=== PATIENT | male | born 1940 | race Caucasian/White ===

== ENCOUNTER 2018-05-13 14:11 | Day surgery (SDC) | payer MEDICARE, OTHER ==
[2018-05-13] MEDS: ceFAZolin 1 GM in Premix Bag 1 BAG IV SCH ×2 (15:17→20:11)
[2018-05-14] MEDS ORDERED: Lactated Ringers 1,000 ML IV SCH
[2018-05-14] MEDS: ceFAZolin 1 GM in Premix Bag 1 BAG IV SCH ×4 (03:18→21:30)
--- NOTE | 2018-05-14 08:47 | PCM.PREANE ---
Preanesthetic Assessment - Anesthesia/Transfusion/Family Hx Anesthesia History: Prior Anesthesia Without Reaction Family History of Anesthesia Reaction: No Transfusion History: Unknown Intubation History: Unknown - Review of Systems General: No Symptoms Pulmonary: No Symptoms Cardiovascular: No Symptoms Gastrointestinal: No Symptoms Neurological: No Symptoms Other: Reports: None - Physical Assessment NPO Status Date: 05/13/18 NPO Status Time: 21:00 O2 Sat by Pulse Oximetry: 96 Respiratory Rate: 16 Vital Signs: Last Vital Signs Temp 96.8 F 05/14/18 07:43 Pulse 60 05/14/18 07:43 Resp 16 05/14/18 07:43 BP 152/84 H 05/14/18 07:43 Pulse Ox 96 05/14/18 07:43 Height: 6 ft 2 in Weight: 83.263 kg ASA Class: 2 Mental Status: Alert & Oriented x3 Airway Class: Mallampati = 2 Dentition: Reports: Missing Tooth/Teeth Thyro-Mental Finger Breadths: 2 (Recessed lower jaw, narrow mouth) Mouth Opening Finger Breadths: 2 ROM/Head Extension: Full Lungs: Clear to Auscultation, Normal Respiratory Effort Cardiovascular: Regular Rate, Regular Rhythm - Lab Values: Laboratory Last Values WBC 6.69 K/uL (4.0-11.0) 05/14/18 05:25 RBC 3.52 M/uL (4.50-5.90) L 05/14/18 05:25 Hgb 10.9 g/dL (13.0-17.0) L 05/14/18 05:25 Hct 33.0 % (38.0-50.0) L 05/14/18 05:25 MCV 93.8 fL (80.0-98.0) 05/14/18 05:25 MCH 31.0 pg (27.0-32.0) 05/14/18 05:25 MCHC 33.0 g/dL (31.0-37.0) 05/14/18 05:25 RDW Std Deviation 45.3 fl (28.0-62.0) 05/14/18 05:25 RDW Coeff of Fara 13 % (11.0-15.0) 05/14/18 05:25 Plt Count 322 K/uL (150-400) 05/14/18 05:25 MPV 9.10 fL (7.40-12.00) 05/14/18 05:25 Neut % (Auto) 53.2 % (48.0-80.0) 05/14/18 05:25 Lymph % (Auto) 35.3 % (16.0-40.0) 05/14/18 05:25 Patrick % (Auto) 9.0 % (0.0-15.0) 05/14/18 05:25 Eos % (Auto) 2.4 % (0.0-7.0) 05/14/18 05:25 Baso % (Auto) 0.1 % (0.0-1.5) 05/14/18 05:25 Neut # (Auto) 3.6 K/uL (1.4-5.7) 05/14/18 05:25 Lymph # (Auto) 2.4 K/uL (0.6-2.4) 05/14/18 05:25 Patrick # (Auto) 0.6 K/uL (0.0-0.8) 05/14/18 05:25 Eos # (Auto) 0.2 K/uL (0.0-0.7) 05/14/18 05:25 Baso # (Auto) 0.0 K/uL (0.0-0.1) 05/14/18 05:25 Nucleated RBC % 0.0 /100WBC 05/14/18 05:25 Nucleated RBCs # 0 K/uL 05/14/18 05:25 Sodium 137 mmol/L (136-148) 05/14/18 05:25 Potassium 4.5 mmol/L (3.5-5.1) 05/14/18 05:25 Chloride 105 mmol/L (98-107) 05/14/18 05:25 Carbon Dioxide 27.9 mmol/L (21.0-32.0) 05/14/18 05:25 BUN 16 mg/dL (7.0-18.0) 05/14/18 05:25 Creatinine 1.2 mg/dL (0.8-1.3) 05/14/18 05:25 Est Cr Clr Drug Dosing 58.03 mL/min 05/14/18 05:25 Estimated GFR (MDRD) 58.4 ml/min 05/14/18 05:25 Glucose 95 mg/dL (74-106) 05/14/18 05:25 Calcium 8.5 mg/dL (8.5-10.1) 05/14/18 05:25 - Allergies Allergies/Adverse Reactions: Allergies Allergy/AdvReac Type Severity Reaction Status Date / Time No Known Allergies Allergy Verified 05/13/18 15:01 - Acknowledgements Anesthesia Type Planned: Spinal Pt an Appropriate Candidate for the Planned Anesthesia: Yes Alternatives and Risks of Anesthesia Discussed w Pt/Guardian: Yes Pt/Guardian Understands and Agrees with Anesthesia Plan: Yes PreAnesthesia Questionnaire HEENT History: Reports: None Cardiovascular History: Reports: Other (See Below) (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 Neurological History: Reports: None Psychiatric History: Reports: None Endocrine/Metabolic History: Reports: None Hematologic History: Reports: Anemia Immunologic History: Reports: None Oncologic (Cancer) History: Reports: None Dermatologic History: Reports: None - Past Surgical History HEENT Surgical History: Reports: None Cardiovascular Surgical History: Reports: Carotid Endarterectomy (Lt side 2015 - Left carotid suffered complication and is now 100% occluded) Respiratory Surgical History: Reports: None GI Surgical History: Reports: None Female Surgical History: Reports: None Male Surgical History: Reports: TURP-Transurethral Resection of Prostate ( 2003 - uneventful per patient) Musculoskeletal Surgical History: Reports: Shoulder Replacement (Rt) - SUBSTANCE USE Smoking Status *Q: Never Smoker Tobacco Use Within Last Twelve Months: No Second Hand Smoke Exposure: No Recreational Drug Use History: No - HOME MEDS Home Medications: Home Meds Finasteride 5 mg PO DAILY 05/13/18 [History] - CURRENT (IN HOUSE) MEDS Current Meds: Current Medications Cefazolin Sodium/Dextrose 1 gm (/ Premix) 50 mls @ 100 mls/hr IV Q6H [facility] Last Admin: 05/14/18 08:10 Dose: 100 mls/hr Lactated Ringer's (Ringers, Lactated) 1,000 mls @ 100 mls/hr IV ASDIRECTED [facility] Last Admin: 05/14/18 00:21 Dose: 100 mls/hr Tobramycin 120 mg/ Sodium (Chloride) 103 mls @ 103 mls/hr IV Q12H [facility] Last Admin: 05/14/18 04:40 Dose: 103 mls/hr Discontinued Medications Tobramycin 120 mg/ Sodium (Chloride) 100 mls @ 100 mls/hr IV Q12H [facility]
[2018-05-14] MEDS ORDERED: Midazolam 1 MG/ML 2 ML SDV ONE (09:45)
[2018-05-14] MEDS ORDERED: Ondansetron 4 MG/2 ML SDV ONE (09:45)
[2018-05-14] MEDS ORDERED: fentaNYL 100 MCG/2 ML SDV ONE ×2 (09:45→11:36)
[2018-05-14] MEDS ORDERED: Propofol 200 MG/20 ML SDV ONE (11:37)
[2018-05-14] MEDS ORDERED: Sugammadex Sodium 200 MG/2 ML VIAL ONE (13:12)
[2018-05-14] MEDS ORDERED: Belladonna Alkaloids/Opium 16.2-30 MG Supp RECTAL PRN (13:26)
--- NOTE | 2018-05-14 14:07 | PCM.POSTAN ---
POST ANESTHESIA ASSESSMENT - MENTAL STATUS Mental Status: Alert, Oriented - RESPIRATORY Respiratory Status: Respiratory Rate WNL, Airway Patent, O2 Saturation Stable - CARDIOVASCULAR CV Status: Pulse Rate WNL, Blood Pressure Stable - GASTROINTESTINAL GI Status: No Symptoms - PAIN Pain Score: 3 - POST OP HYDRATION Hydration Status: Adequate & Stable - OBSERVATIONS Free Text/Narrative:: no anesthesia problems
--- NOTE | 2018-05-14 14:17 | OR ---
SURGEON: Que Ng M.D. DATE OF PROCEDURE: 05/14/2018 PREOPERATIVE DIAGNOSIS: Urinary retention. POSTOPERATIVE DIAGNOSIS: Urinary retention. OPERATION: TURP. DESCRIPTION OF PROCEDURE: The patient was given general anesthesia, placed in dorsal lithotomy position, prepped and draped in sterile drapes. The 27-Welsh resectoscope was introduced in the bladder without difficulty. The bladder neck was wide opened. The prostatic urethra was obstructed with lateral lobes. The resection was started with the neck going on laterally and anteriorly. At the end, the ureteral orifices were intact, the prostate chips were removed. A 22 three-way Paredes catheter with 60 mL in the balloon was left in the bladder connected to TUR drip. Estimated blood loss was 400 mL. The patient was given one unit of blood during the procedure. He did well, was moved to recovery room in good condition. AZAM / TAMI /[id number]
[2018-05-14] MEDS: Bacitracin Oint 28.35 GM Tube TOP SCH ×2 (15:07→22:00)
[2018-05-14] MEDS: D5 1/2 NS w/ 20 mEq/L KCl 1,000 ML IV SCH (17:14)
[2018-05-14] MEDS: Docusate Sodium 100 MG Cap PO SCH (21:30)
[2018-05-15] MEDS: ceFAZolin 1 GM in Premix Bag 1 BAG IV SCH ×2 (02:06→08:20)
[2018-05-15] MEDS: D5 1/2 NS w/ 20 mEq/L KCl 1,000 ML IV SCH (02:06)
[2018-05-15] MEDS: Bacitracin Oint 28.35 GM Tube TOP SCH ×3 (06:11→21:29)
--- NOTE | 2018-05-15 07:30 | PCM48HPAN ---
Post Anesthesia Note - EVALUATION WITHIN 48HRS OF ANESTHETIC Vital Signs in Normal Range: Yes Patient Participated in Evaluation: Yes Respiratory Function Stable: Yes Airway Patent: Yes Cardiovascular Function Stable: Yes Hydration Status Stable: Yes Pain Control Satisfactory: Yes Nausea and Vomiting Control Satisfactory: Yes Mental Status Recovered: Yes Resp Rate: 16
[2018-05-15] MEDS: Docusate Sodium 100 MG Cap PO SCH ×2 (08:13→21:28)
[2018-05-16] MEDS: Bacitracin Oint 28.35 GM Tube TOP SCH (06:28)
[2018-05-16] MEDS: Docusate Sodium 100 MG Cap PO SCH (09:33)
--- NOTE | 2018-05-16 14:09 | DISCH ---
DATE OF DISCHARGE: 05/16/2018 PRIMARY CARE PHYSICIAN: Braxton PCP A 77-year-old, he was admitted to the hospital in urinary retention, had IV antibiotics overnight, was taken to the operating room where he had a TURP. Postoperatively, remained stable, did well, and was discharged on second postop day. He stayed an extra day to make sure the urine remains reasonably clear. At the time of discharge, his vital signs are normal. He is afebrile. He is doing well. His urine is reasonably clear. He is sent home on Macrobid 100 mg one p.o. b.i.d. for one week. He is to come back as needed. The pathology is still pending. AZAM GARRETT /[id number]
--- NOTE | 2018-06-08 16:31 | PCM.HP ---
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 Neurological History: Reports: None Psychiatric History: Reports: None Endocrine/Metabolic History: Reports: None Hematologic History: Reports: Anemia Immunologic History: Reports: None Oncologic (Cancer) History: Reports: None Dermatologic History: Reports: None - Past Surgical History HEENT Surgical History: Reports: None Cardiovascular Surgical History: Reports: Carotid Endarterectomy (Lt side 2015 - Left carotid suffered complication and is now 100% occluded) Respiratory Surgical History: Reports: None GI Surgical History: Reports: None Female Surgical History: Reports: None Male Surgical History: Reports: TURP-Transurethral Resection of Prostate ( 2003 - uneventful per patient) Musculoskeletal Surgical History: Reports: Shoulder Replacement (Rt) Social & Family History - Tobacco Use Smoking Status *Q: Never Smoker Second Hand Smoke Exposure: No - Caffeine Use Caffeine Use: Reports: Coffee, Soda - Recreational Drug Use Recreational Drug Use: No Exam - Vital Signs Vital Signs: Last Vital Signs Temp 97.9 F 05/16/18 11:00 Pulse 79 05/16/18 11:00 Resp 18 05/16/18 11:00 BP 109/57 L 05/16/18 11:00 Pulse Ox 96 05/16/18 11:00 Weight: 183 lb 9 oz - Patient Data Result Diagrams: 05/15/18 04:55 05/15/18 04:55
== END 2018-05-16 13:30 ==
LOC: MW.SDS 14:11 → MW.MS 14:11 → MW.SDS 14:22 → UNDOADMIN 14:37 → MW.MS 14:37 → MW.SDS 14:37 → UNDODISIN 05-16 13:30
PROVIDERS: ATTEND Urology
PROC: 0VB08ZZ Excision of Prostate, Via Natural or Artificial Opening Endoscopic (ICD-10-PCS; principal; 2018-05-14)
DX: N40.1 Benign prostatic hyperplasia with lower urinary tract symptoms (principal); R31.0 Gross hematuria; R33.8 Other retention of urine; I65.22 Occlusion and stenosis of left carotid artery; Z96.611 Presence of right artificial shoulder joint; Z79.899 Other long term (current) drug therapy
CPT/HCPCS: 36415; 36430; 52601; 80048; 84132; 84295; 85025; 85610; 86850; 86900; 86901; 86920; 86921; 86922; 88305; 93005; A9270; J0690; J2250; J2704; J3010; J3260; J3480; J3490; J7030; J7120; P9016; 00914; J2405